=== PATIENT | female | born 1970 | race American Indian/Alaskan Native ===

== ENCOUNTER 2016-08-21 08:21 | Emergency (ER) | payer OTHER, MEDICAID ==
[2016-08-21 08:32] VITALS: BP 130/82
[2016-08-21] MEDS ORDERED: TORADOL IM ONE (09:36)
[2016-08-21] MEDS ORDERED: NORCO 5/325 PO ONE (09:36)
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
== END 2016-08-21 11:30 | disposition home or self-care (01) ==
LOC: ED 08:21
DX: S29.012A Strain of muscle and tendon of back wall of thorax, initial encounter (principal); F17.200 Nicotine dependence, unspecified, uncomplicated; Z88.0 Allergy status to penicillin; V89.2XXS Person injured in unspecified motor-vehicle accident, traffic, sequela
CPT/HCPCS: 96372; 99282; J1885

== ENCOUNTER 2016-09-20 09:19 | Outpatient (CLI) | payer OTHER ==
--- NOTE | 2016-09-20 10:39 | XRay Report ---
AP AND LATERAL CERVICAL SPINE: History: Neck pain. The vertebral bodies are well mineralized and normal in alignment and vertebral height with well preserved interspace distances. The visualized portions of the posterior elements are normal. IMPRESSION: Normal study.
--- NOTE | 2016-09-20 10:40 | XRay Report ---
RIGHT HIP, 2 views: History: Right hip pain. The bony architecture is intact without evidence of fracture or dislocation. No significant soft tissue abnormality is seen. IMPRESSION: Normal right hip.
== END 2016-09-20 09:20 | disposition home or self-care (01) ==
LOC: XRAY 09:19
PROVIDERS: ATTEND Internal Medicine
DX: S39.92XA Unspecified injury of lower back, initial encounter (principal); M25.551 Pain in right hip; M54.2 Cervicalgia; X58.XXXA Exposure to other specified factors, initial encounter; Y93.89 Activity, other specified; Y92.89 Other specified places as the place of occurrence of the external cause; Y99.8 Other external cause status; F41.9 Anxiety disorder, unspecified; F31.9 Bipolar disorder, unspecified; H53.8 Other visual disturbances
CPT/HCPCS: 72040

== ENCOUNTER 2016-11-07 07:49 | Emergency (ER) | payer MEDICAID, OTHER ==
[2016-11-07 08:03] VITALS: BP 123/85
--- NOTE | 2016-11-07 09:07 | Emergency Department Report ---
ED General Adult HPI - General Chief complaint: Pain General Stated complaint: BODY HURTS/DIZZINESS Time Seen by Provider: 11/07/16 08:54 Source: patient Mode of arrival: Ambulatory Limitations: No Limitations - History of Present Illness Initial comments: This is a 46-year-old female well-nourished with nontoxic or ill in appearance but presents with body aches, dizziness, sore throat and neck pain for the past week. Patient denies any sick contacts. Describes body ache as aching and intermittent dizziness. Patient denies head trauma or loss of consciousness. Patient stated she do not side on the sun for the past week with limited fluid intake. Patient describes sore throat as swallowing razor blades. Patient denies any stiff neck. Denies fever, chills, headache, blurry vision, numbness , tingling, bowel pain, nausea or vomiting, chest pain, shortness of breath. Allergies to penicillin. Denies significant past medical history. MD Complaint: bodyaches, sore throat, neck pain -: Gradual, week(s) (1) Radiation: non-radiation Severity scale (0 -10): 9 Quality: aching Consistency: constant (sore throat), intermittent (dizziness) Improves with: none Worsens with: none Associated Symptoms: denies other symptoms. denies: confusion, chest pain, cough, diaphoresis, fever/chills, headaches, loss of appetite, malaise, nausea/ vomiting, rash, seizure, shortness of breath, syncope, weakness Treatments Prior to Arrival: none - Related Data Home Medications Medication Instructions Recorded Confirmed Last Taken Acetaminophen [Acetaminophen TAB] 650 mg PO Q6HR PRN 12/16/14 12/25/14 12/18/14 09:00 Citalopram Hydrobromide [celeXA] 40 mg PO DAILY 12/16/14 12/25/14 12/18/14 09:00 Indomethacin 50 mg PO Q8H 12/16/14 12/25/14 12/18/14 09:00 Previous Rx's Medication Instructions Recorded Last Taken Type Cyclobenzaprine [Flexeril] 10 mg PO TID PRN #15 tablet 08/21/16 Unknown Rx Naproxen [Naprosyn TAB] 500 mg PO BID PRN #25 tablet 08/21/16 Unknown Rx Azithromycin [Zithromax TAB] 500 mg PO DAILY #5 tablet 11/07/16 Unknown Rx Allergies Allergy/AdvReac Type Severity Reaction Status Date / Time Penicillins AdvReac Hives Verified 08/21/16 08:26 ED Review of Systems ROS: Stated complaint: BODY HURTS/DIZZINESS Other details as noted in HPI Constitutional: denies: chills, fever Eyes: denies: eye pain, eye discharge, vision change ENT: throat pain. denies: ear pain Respiratory: denies: cough, shortness of breath, wheezing Cardiovascular: denies: chest pain, palpitations Endocrine: no symptoms reported Gastrointestinal: denies: abdominal pain, nausea, diarrhea Genitourinary: denies: urgency, dysuria, discharge Musculoskeletal: denies: back pain, joint swelling, arthralgia Skin: denies: rash, lesions Neurological: denies: headache, weakness, paresthesias Psychiatric: denies: anxiety, depression Hematological/Lymphatic: denies: easy bleeding, easy bruising ED Past Medical Hx - Past Medical History Previous Medical History?: No Hx Hypertension: No Hx Renal Disease: No Hx Asthma: No Hx COPD: No - Surgical History Past Surgical History?: Yes Additional Surgical History: tubal ligation - Social History Smoking Status: Current Every Day Smoker Substance Use Type: Non Opiate Pain, Prescribed, Other - Medications Home Medications: Home Medications Medication Instructions Recorded Confirmed Last Taken Type Acetaminophen [Acetaminophen TAB] 650 mg PO Q6HR PRN 12/16/14 12/25/14 12/18/14 09:00 History Citalopram Hydrobromide [celeXA] 40 mg PO DAILY 12/16/14 12/25/14 12/18/14 09: 00 History Indomethacin 50 mg PO Q8H 12/16/14 12/25/14 12/18/14 09:00 History Cyclobenzaprine [Flexeril] 10 mg PO TID PRN #15 tablet 08/21/16 Unknown Rx Naproxen [Naprosyn TAB] 500 mg PO BID PRN #25 tablet 08/21/16 Unknown Rx Azithromycin [Zithromax TAB] 500 mg PO DAILY #5 tablet 11/07/16 Unknown Rx ED Physical Exam - General Limitations: No Limitations General appearance: alert, in no apparent distress - Head Head exam: Present: atraumatic, normocephalic, normal inspection - Eye Eye exam: Present: normal appearance, PERRL, EOMI. Absent: scleral icterus, conjunctival injection, nystagmus, periorbital swelling, periorbital tenderness Pupils: Present: normal accommodation - ENT ENT exam: Present: mucous membranes moist, TM's normal bilaterally, normal external ear exam - Expanded ENT Exam Expanded Ear exam: Present: normal external inspection Mouth exam: Present: normal external inspection, tongue normal. Absent: drooling, trismus, muffled voice, tongue elevation, laceration Teeth exam: Present: normal inspection Throat exam: Positive: tonsillar erythema, tonsillomegaly (2+), tonsillar exudate. Negative: R peritonsillar mass, L peritonsillar mass - Neck Neck exam: Present: normal inspection, full ROM. Absent: tenderness, meningismus, lymphadenopathy, thyromegaly - Respiratory Respiratory exam: Present: normal lung sounds bilaterally. Absent: respiratory distress, wheezes, rales, rhonchi, stridor, chest wall tenderness, accessory muscle use, decreased breath sounds, prolonged expiratory - Cardiovascular Cardiovascular Exam: Present: regular rate, normal rhythm, normal heart sounds. Absent: bradycardia, tachycardia, irregular rhythm, systolic murmur, diastolic murmur, rubs, gallop - GI/Abdominal GI/Abdominal exam: Present: soft, normal bowel sounds. Absent: distended, tenderness, guarding, rebound, rigid, diminished bowel sounds - Rectal Rectal exam: Present: deferred, normal rectal tone (as per pt) - Extremities Exam Extremities exam: Present: normal inspection, full ROM, normal capillary refill. Absent: tenderness, pedal edema, joint swelling, calf tenderness - Back Exam Back exam: Present: normal inspection, full ROM. Absent: tenderness, CVA tenderness (R), CVA tenderness (L), muscle spasm, paraspinal tenderness, vertebral tenderness, rash noted - Neurological Exam Neurological exam: Present: alert, oriented X3, CN II-XII intact, normal gait, reflexes normal - Psychiatric Psychiatric exam: Present: normal affect, normal mood - Skin Skin exam: Present: warm, dry, intact, normal color. Absent: rash - Other Other exam information: Negative Brudzinski sign. Negative Kernig sign. ED Course Vital Signs 11/07/16 07:59 Temperature 98.3 F Pulse Rate 80 Respiratory 16 Rate Blood Pressure 123/85 O2 Sat by Pulse 100 Oximetry ED Medical Decision Making - Medical Decision Making Ed course: This is a 46-year-old female that presents with body aches, dizziness , exudative tonsillitis, and neck pain 1- patient received an EKG prior to my interview. Normal sinus rhythm. Normal EKG. 2 after my physical exam, patient received CBC, BMP, CK, UA, serum test. 3- patient received azithromycin 500 mg 5 days due to PCN allergies 4- patient was instructed to follow up with her primary care doctor in 24 hours or if symptoms worsen return back to emergency room as soon as possible. 5 patient was also instructed to finish full course of antibiotics as prescribed. 6- at time time of discharge, the patient does not seem toxic or ill in appearance. No acute signs of distress noted. Patient agrees to discharge treatment plan of care. No further questions noted by the patient. Critical care attestation.: If time is entered above; I have spent that time in minutes in the direct care of this critically ill patient, excluding procedure time. ED Disposition Clinical Impression: Exudative tonsillitis, Dizziness, Body aches Disposition: DC-01 TO HOME OR SELFCARE Is pt being admited?: No Does the pt Need Aspirin: No Condition: Stable Instructions: Tonsillitis (ED), Clindamycin (By mouth), Dizziness (ED) Additional Instructions: Follow-up with her primary care doctor in 24 hours or if symptoms worsen return back to emergency room as soon as possible. Finish course of antibiotics as prescribed. Prescriptions: Azithromycin [Zithromax TAB] 500 mg PO DAILY #5 tablet Referrals: [facility] [Outside] - 3-5 Days [facility] [Outside] - 3-5 Days PRIMARY CAREMD [Primary Care Provider] - 24 Hours THEE GRACIA JR, MD [Staff Physician] - 24 Hours Forms: Work/School Release Form(ED)
[2016-11-07 09:30] LABS: Basophils % (Auto) 0.4 % (0.0-1.8); Eosinophils % (Auto) 2.5 % (0.0-4.3); Hematocrit 34.3 % (30.3-42.9); Hemoglobin 11.3 gm/dl (10.1-14.3); Mean Corpuscular HGB Conc 33 % (30-34); Mean Corpuscular Hemoglobin 30 pg (28-32); Mean Corpuscular Volume 90 fl (79-97); Platelet Count 282 K/mm3 (140-440); Red Cell Distribution Width 13.3 % (13.2-15.2); White Blood Count 7.2 K/mm3 (4.5-11.0)
[2016-11-07 09:40] LABS: Anion Gap 18 mmol/L; BUN/Creatinine Ratio 13.33; Blood Urea Nitrogen 8 mg/dL (7-17); Calcium 9.1 mg/dL (8.4-10.2); Carbon Dioxide 27 mmol/L (22-30); Chloride 99.6 mmol/L (98-107); Creatine Kinase 132 units/L (30-135); Glucose 94 mg/dL (65-100); Potassium 4.1 mmol/L (3.6-5.0); Sodium 140 mmol/L (137-145)
[2016-11-07 10:53] LABS: Bilirubin,Urine NEG (Negative); Blood,Urine MOD (Negative); Ketones,Urine NEG (Negative); Leukocyte Esterase,Urine NEG (Negative); Nitrite,Urine NEG (Negative); Urobilinogen,Urine < 2.0 mg/dL (<2.0)
== END 2016-11-07 11:35 | disposition home or self-care (01) ==
LOC: ED 07:49
DX: J03.90 Acute tonsillitis, unspecified (principal); R42 Dizziness and giddiness; F17.210 Nicotine dependence, cigarettes, uncomplicated; Z88.0 Allergy status to penicillin; Z98.51 Tubal ligation status
CPT/HCPCS: 36415; 80048; 81001; 82550; 84703; 85025; 93005; 93010; 99283

== ENCOUNTER 2016-11-11 18:17 | Emergency (ER) | payer MEDICAID, OTHER ==
[2016-11-11 19:04] LABS: Basophils % (Auto) 0.6 % (0.0-1.8); Eosinophils % (Auto) 1.5 % (0.0-4.3); Hematocrit 32.1 % (30.3-42.9); Hemoglobin 10.6 gm/dl (10.1-14.3); Mean Corpuscular HGB Conc 33 % (30-34); Mean Corpuscular Hemoglobin 30 pg (28-32); Mean Corpuscular Volume 90 fl (79-97); Red Blood Count 3.56 M/mm3 (3.65-5.03); Red Cell Distribution Width 13.5 % (13.2-15.2); White Blood Count 11.9 K/mm3 (4.5-11.0)
[2016-11-11 19:08] LABS: Platelet Count 365 K/mm3 (140-440)
[2016-11-11 19:27] LABS: Anion Gap 19 mmol/L; BUN/Creatinine Ratio 13.33; Blood Urea Nitrogen 8 mg/dL (7-17); Calcium 9.2 mg/dL (8.4-10.2); Carbon Dioxide 24 mmol/L (22-30); Chloride 98.5 mmol/L (98-107); Glucose 107 mg/dL (65-100); Potassium 3.2 mmol/L (3.6-5.0); Sodium 138 mmol/L (137-145)
[2016-11-11] MEDS ORDERED: BABY ASPIRIN PO ONE (22:07)
[2016-11-11] MEDS ORDERED: PEPCID IV ONE (22:13)
[2016-11-11] MEDS ORDERED: MORPHINE IV ONE (22:13)
--- NOTE | 2016-11-11 22:13 | Emergency Department Report ---
ED Chest Pain HPI - General Chief Complaint: Chest Pain Stated Complaint: CHEST PAIN Time Seen by Provider: 11/11/16 22:07 Source: patient Mode of arrival: Ambulatory Limitations: No Limitations - History of Present Illness Initial Comments: Pt is a 46 yr old F with a h/o HTN and depression who presents to the ED with chest pain. Pt reports she had tonsillitis and was given azithromycin 3 days ago and ever since she started the medication she has been experiencing chest pain. She describes the chest pain as sharp constant sharp pain in the middle of her chest with no associated complaints. Otherwise no fevers, chills, WAER dizziness, NVD, SOB, abd pain, travel, or sick contacts. No h/o CAD or stents, patient is a non smoker - Related Data Home Medications Medication Instructions Recorded Confirmed Last Taken Acetaminophen [Acetaminophen TAB] 650 mg PO Q6HR PRN 12/16/14 12/25/14 12/18/14 09:00 Citalopram Hydrobromide [celeXA] 40 mg PO DAILY 12/16/14 12/25/14 12/18/14 09:00 Indomethacin 50 mg PO Q8H 12/16/14 12/25/14 12/18/14 09:00 Previous Rx's Medication Instructions Recorded Last Taken Type Cyclobenzaprine [Flexeril 10 MG 10 mg PO TID PRN #15 tablet 08/21/16 Unknown Rx TAB] Naproxen [Naprosyn TAB] 500 mg PO BID PRN #25 tablet 08/21/16 Unknown Rx Allergies Allergy/AdvReac Type Severity Reaction Status Date / Time Penicillins AdvReac Hives Verified 08/21/16 08:26 Heart Score - HEART Score History: Slightly suspicious EKG: Normal Age: 45-65 Risk factors: No known risk factors Troponin: < normal limit HEART Score: 1 ED Review of Systems ROS: Stated complaint: CHEST PAIN Other details as noted in HPI Comment: All other systems reviewed and negative ED Past Medical Hx - Past Medical History Previous Medical History?: Yes Hx Hypertension: No Hx Renal Disease: No Hx Asthma: No Hx COPD: No - Surgical History Additional Surgical History: tubal ligation - Social History Smoking Status: Current Every Day Smoker Substance Use Type: Alcohol - Medications Home Medications: Home Medications Medication Instructions Recorded Confirmed Last Taken Type Acetaminophen [Acetaminophen TAB] 650 mg PO Q6HR PRN 08/07/2812/25/14 12/18/14 09:00 History Citalopram Hydrobromide [celeXA] 40 mg PO DAILY 12/16/14 12/25/14 12/18/14 09: 00 History Indomethacin 50 mg PO Q8H 12/16/14 12/25/14 12/18/14 09:00 History Cyclobenzaprine [Flexeril 10 MG 10 mg PO TID PRN #15 tablet 08/21/16 Unknown Rx TAB] Naproxen [Naprosyn TAB] 500 mg PO BID PRN #25 tablet 08/21/16 Unknown Rx ED Physical Exam - General Limitations: No Limitations General appearance: alert, in distress (Patient in emotional distress, crying on stretcher) - Head Head exam: Present: atraumatic, normocephalic - Eye Eye exam: Present: normal appearance, PERRL, EOMI Pupils: Present: normal accommodation - ENT ENT exam: Present: mucous membranes moist - Neck Neck exam: Present: normal inspection - Respiratory Respiratory exam: Present: normal lung sounds bilaterally. Absent: respiratory distress - Cardiovascular Cardiovascular Exam: Present: regular rate, normal rhythm, normal heart sounds. Absent: tachycardia, irregular rhythm, systolic murmur, diastolic murmur, rubs , gallop - GI/Abdominal GI/Abdominal exam: Present: soft, normal bowel sounds. Absent: distended, tenderness, guarding, rebound, rigid - Rectal Rectal exam: Present: deferred - Extremities Exam Extremities exam: Present: normal inspection - Back Exam Back exam: Present: normal inspection - Neurological Exam Neurological exam: Present: alert, oriented X3 - Psychiatric Psychiatric exam: Present: normal affect, other (emotionally upset, crying) - Skin Skin exam: Present: warm, dry, intact, normal color. Absent: rash ED Course Vital Signs 11/11/16 18:32 Temperature 98.4 F Pulse Rate 92 H Respiratory 18 Rate Blood Pressure 121/86 O2 Sat by Pulse 100 Oximetry ELLIOT score - Elliot Score Age > 65: (0) No Aspirin use within the Past 7 Days: (0) No 3 or more CAD Risk Factors: (0) No 2 or more Angina events in past 24 hrs: (1) Yes Known CAD with more than 50% Stenosis: (0) No Elevated Cardiac Markers: (0) No ST Deviation Greater than 0.5mm: (0) No ELLIOT Score: 1 ED Medical Decision Making - Lab Data Result diagrams: 11/11/16 18:36 11/11/16 18:36 - EKG Data -: EKG Interpreted by Me - EKG Data 11/11/16 22:08 EKG 1820, normal sinus rhythm at 80 bpm, QTC 428 ms, normal axis, no LVH, no ST changes, no STEMI - Radiology Data Radiology results: report reviewed CXR: no acute cardiopulmonary disease as visualized by me - Medical Decision Making Patient given morphine 4mg IVP and toradol 30mg IVP, pepcid 20mg IVP Cardiac enzymes are negative x 2 after 3+ days of chest pain CXR WNL Likely not cardiac in nature, patient to follow up with PMD, advised patient to stop azithromycin Critical care attestation.: If time is entered above; I have spent that time in minutes in the direct care of this critically ill patient, excluding procedure time. ED Disposition Clinical Impression: Chest wall pain Disposition: DC-01 TO HOME OR SELFCARE Is pt being admited?: No Condition: Stable Instructions: Chest Pain (ED) Additional Instructions: STOP TAKING THE AZITHROMYCIN Referrals: PRIMARY CARE, [Primary Care Provider] - 3-5 Days
[2016-11-11] MEDS ORDERED: K-DUR PO ONE (23:37)
[2016-11-12] MEDS ORDERED: TORADOL IV ONE (00:31)
[2016-11-12 00:49] VITALS: BP 115/73
--- NOTE | 2016-11-12 09:14 | XRay Report ---
Chest 2 views: History: Chest pain. Findings: Normal cardiomediastinal silhouette. Trachea is midline. No consolidation, pneumothorax or pleural effusion. Impression: No acute cardiopulmonary findings.
== END 2016-11-12 00:50 | disposition home or self-care (01) ==
LOC: ED 18:17
DX: R07.89 Other chest pain (principal); F17.200 Nicotine dependence, unspecified, uncomplicated
CPT/HCPCS: 36415; 71020; 80048; 84484; 84703; 85025; 85379; 93005; 93010; 96374; 96375; 99285; J1885; J2270

== ENCOUNTER 2017-02-28 11:57 | Emergency (ER) | payer MEDICAID ==
[2017-02-28 12:14] VITALS: BP 123/70
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
[2017-02-28 13:51] LABS: Basophils % (Auto) 0.8 % (0.0-1.8); Eosinophils % (Auto) 1.3 % (0.0-4.3); Hematocrit 36.5 % (30.3-42.9); Hemoglobin 12.3 gm/dl (10.1-14.3); Mean Corpuscular HGB Conc 34 % (30-34); Mean Corpuscular Hemoglobin 30 pg (28-32); Mean Corpuscular Volume 90 fl (79-97); Platelet Count 237 K/mm3 (140-440); Red Blood Count 4.08 M/mm3 (3.65-5.03); Red Cell Distribution Width 13.6 % (13.2-15.2); White Blood Count 5.4 K/mm3 (4.5-11.0)
[2017-02-28 14:02] LABS: INR 0.86 (0.87-1.13); Partial Thromboplastin Time 31.4 Sec. (24.2-36.6)
[2017-02-28 14:05] LABS: Creatine Kinase MB 1.8 ng/mL (0.0-4.0)
[2017-02-28 14:06] LABS: Alanine Aminotransferase 13 units/L (7-56); Albumin 4.1 g/dL (3.9-5); Albumin/Globulin Ratio 1.6 %; Alkaline Phosphatase 51 units/L (35-129); Anion Gap 16 mmol/L; BUN/Creatinine Ratio 20; Blood Urea Nitrogen 10 mg/dL (7-17); Carbon Dioxide 27 mmol/L (22-30); Chloride 102.2 mmol/L (98-107); Creatine Kinase 227 units/L (30-135); Glucose 110 mg/dL (65-100); Sodium 141 mmol/L (137-145); Total Protein 6.7 g/dL (6.3-8.2)
--- NOTE | 2017-02-28 14:50 | Cat Scan Report ---
CT HEAD WITHOUT CONTRAST: HISTORY: CVA. Serial contiguous axial images were obtained through the cranium. Intravenous contrast material was not administered. The ventricles are normal in size and appearance. There is no mass effect or midline shift. No areas of abnormally increased or decreased attenuation are seen. No mass lesion is seen. The mastoid air cells and visualized portions of the sinuses are normal. IMPRESSION: Cranial CT scan within normal limits.
== END 2017-03-01 05:00 | disposition left against medical advice (07) ==
LOC: ED 11:57
DX: M79.1 Myalgia (principal); Z53.21 Procedure and treatment not carried out due to patient leaving prior to being seen by health care provider
CPT/HCPCS: 36415; 70450; 80053; 82550; 82553; 84484; 84703; 85025; 85610; 85670; 85730; 86850; 86900; 86901

== ENCOUNTER 2017-09-22 05:33 | Emergency (ER) | payer MEDICAID ==
[2017-09-22] MEDS ORDERED: TYLENOL ONE (05:59)
[2017-09-22 06:02] VITALS: BP 146/89
--- NOTE | 2017-09-22 09:35 | Emergency Department Report ---
ED Back Pain/Injury HPI - General Chief Complaint: Back Pain/Injury Stated Complaint: CP/BACK PAIN Time Seen by Provider: 09/22/17 09:21 Source: patient Limitations: No Limitations - History of Present Illness Initial Comments: Patient is a 47-year-old black female who is complaining of pain between her shoulder blades radiating to the mid back. Patient states this a sharp labor like pain. Patient states she reached down to grab her grandchild 2 days ago started having pain after that. Patient states is worse after awakening the next morning. Patient is denying any shortness of breath cough congestion and fevers chills nausea vomiting at this time. Patient has no radiation of this pain into the arms or any weakness bilaterally. States pain is 10 out of 10 in her sports with movement. - Related Data Home Medications Medication Instructions Recorded Confirmed Last Taken Acetaminophen [Acetaminophen TAB] 650 mg PO Q6HR PRN 12/16/14 12/25/14 12/18/14 09:00 Citalopram Hydrobromide [celeXA] 40 mg PO DAILY 12/16/14 12/25/14 12/18/14 09:00 Indomethacin 50 mg PO Q8H 12/16/14 12/25/14 12/18/14 09:00 Previous Rx's Medication Instructions Recorded Last Taken Type Cyclobenzaprine [Flexeril 10 MG 10 mg PO TID PRN #15 tablet 08/21/16 Unknown Rx TAB] Naproxen [Naprosyn TAB] 500 mg PO BID PRN #25 tablet 08/21/16 Unknown Rx HYDROcodone/APAP 5-325 [[place] 1 each PO Q6HR PRN #15 tablet 09/22/17 Unknown Rx 5/325] Ibuprofen [Motrin] 800 mg PO Q8HR PRN #20 tablet 09/22/17 Unknown Rx methOCARBAMOL [Robaxin TAB] 500 mg PO Q6H PRN #15 tablet 09/22/17 Unknown Rx Allergies Allergy/AdvReac Type Severity Reaction Status Date / Time Penicillins AdvReac Hives Verified 08/21/16 08:26 ED Review of Systems ROS: Stated complaint: CP/BACK PAIN Other details as noted in HPI Comment: All other systems reviewed and negative ED Past Medical Hx Family history: no significant family history ED Back Pain Physical Exam - Exam General: Vital signs noted. No distress. Alert and acting appropriately. Back/Abdomen: Yes Perithoracic Tenderness (right greater than left), No Abdominal Tenderness, No Perilumbar Tenderness, No Sacroiliac Tenderness, No Flank Tenderness, No Straight Leg Raise Pain Neuro: Yes Normal Sensation, Yes Normal DTR's, Yes Normal Gait, No Motor Weakness ED Course Vital Signs 09/22/17 05:49 Temperature 98.3 F Pulse Rate 97 H Respiratory 18 Rate Blood Pressure 146/89 O2 Sat by Pulse 100 Oximetry ED Medical Decision Making - EKG Data -: EKG Interpreted by Me - EKG Data Interpretation: other (EKG shows normal sinus rhythm with a rate of 84 normal axis normal intervals no ST segment elevation or depression as interpreted 40 is a normal EKG) - Medical Decision Making Patient is exhibiting muscle skeletal pain with muscle spasm. Patient will be discharged home with appropriate pain management. Critical care attestation.: If time is entered above; I have spent that time in minutes in the direct care of this critically ill patient, excluding procedure time. ED Disposition Clinical Impression: Back strain Qualifiers: Encounter type: initial encounter Qualified Code(s): S39.012A - Strain of muscle, fascia and tendon of lower back, initial encounter Disposition: - TO HOME OR SELFCARE Is pt being admited?: No Does the pt Need Aspirin: No Condition: Stable Instructions: Muscle Strain (ED) Referrals: GEO HICKS MD [Primary Care Provider] - 3-5 Days
[2017-09-22] MEDS ORDERED: TORADOL IM ONE (09:36)
== END 2017-09-22 09:55 | disposition home or self-care (01) ==
LOC: ED 05:33
DX: S39.012A Strain of muscle, fascia and tendon of lower back, initial encounter (principal); Z88.0 Allergy status to penicillin; X58.XXXA Exposure to other specified factors, initial encounter; Y93.89 Activity, other specified; Y92.89 Other specified places as the place of occurrence of the external cause; Y99.8 Other external cause status
CPT/HCPCS: 93005; 93010; 96372; 99282; J1885

== ENCOUNTER 2019-01-10 14:49 | Emergency (ER) | payer MEDICAID ==
[2019-01-10] MEDS ORDERED: IBUPROFEN PO ONE (17:31)
[2019-01-10 17:52] LABS: Basophils # (Auto) 0.1 K/mm3 (0.0-0.1); Basophils % (Auto) 0.9 % (0.0-1.8); Eosinophils # (Auto) 0.1 K/mm3 (0.0-0.4); Eosinophils % (Auto) 1.8 % (0.0-4.3); Hematocrit 39.4 % (30.3-42.9); Hemoglobin 13.4 gm/dl (10.1-14.3); Lymphocytes # (Auto) 2.5 K/mm3 (1.2-5.4); Lymphocytes % (Auto) 34.9 % (13.4-35.0); Mean Corpuscular HGB Conc 34 % (30-34); Mean Corpuscular Volume 90 fl (79-97); Monocytes # (Auto) 0.6 K/mm3 (0.0-0.8); Monocytes % (Auto) 8.2 % (0.0-7.3); Platelet Count 274 K/mm3 (140-440); Red Blood Count 4.38 M/mm3 (3.65-5.03); Red Cell Distribution Width 13.4 % (13.2-15.2)
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
[2019-01-10 18:25] LABS: BUN/Creatinine Ratio 24; Blood Urea Nitrogen 17 mg/dL (7-17); Calcium 9.3 mg/dL (8.4-10.2); Hemolysis Index 8
[2019-01-10 20:56] VITALS: BP 139/85
== END 2019-01-10 20:56 | disposition home or self-care (01) ==
LOC: ED 14:49
DX: S86.911A Strain of unspecified muscle(s) and tendon(s) at lower leg level, right leg, initial encounter (principal); S86.912A Strain of unspecified muscle(s) and tendon(s) at lower leg level, left leg, initial encounter; M54.9 Dorsalgia, unspecified; G89.29 Other chronic pain; F17.200 Nicotine dependence, unspecified, uncomplicated; Z98.51 Tubal ligation status; Z79.899 Other long term (current) drug therapy; Z79.1 Long term (current) use of non-steroidal anti-inflammatories (NSAID); Z88.0 Allergy status to penicillin; W18.09XA Striking against other object with subsequent fall, initial encounter; Y93.01 Activity, walking, marching and hiking; Y92.89 Other specified places as the place of occurrence of the external cause; Y99.8 Other external cause status
CPT/HCPCS: 36415; 80048; 82550; 85025; 99283

== ENCOUNTER 2019-12-01 00:36 | Emergency (ER) | payer MEDICAID ==
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
== END 2019-12-01 01:00 | disposition left against medical advice (07) ==
LOC: ED 00:36
DX: F44.5 Conversion disorder with seizures or convulsions (principal); F17.200 Nicotine dependence, unspecified, uncomplicated; Z98.51 Tubal ligation status; Z79.899 Other long term (current) drug therapy; Z88.0 Allergy status to penicillin; Z53.21 Procedure and treatment not carried out due to patient leaving prior to being seen by health care provider
CPT/HCPCS: 99283

== ENCOUNTER 2020-02-12 01:32 | Emergency (ER) | payer MEDICAID ==
[2020-02-12 01:49] VITALS: BP 128/94
== END 2020-02-12 05:12 | disposition left against medical advice (07) ==
LOC: ED 01:32
DX: F43.9 Reaction to severe stress, unspecified (principal); Z53.21 Procedure and treatment not carried out due to patient leaving prior to being seen by health care provider

== ENCOUNTER 2020-03-19 21:28 | Emergency (ER) | payer MEDICAID | END 2020-03-19 21:50 | disposition left against medical advice (07) | LOC: ED 21:28 | DX: R56.9 Unspecified convulsions (principal); Z53.21 Procedure and treatment not carried out due to patient leaving prior to being seen by health care provider ==

== ENCOUNTER 2020-10-01 09:10 | Emergency (ER) | payer MEDICAID ==
[2020-10-01 09:27] VITALS: BP 121/69
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
--- NOTE | 2020-10-01 10:47 | XRay Report ---
CHEST 2 VIEWS INDICATION / CLINICAL INFORMATION: cough. COMPARISON: None available. FINDINGS: SUPPORT DEVICES: None. HEART / MEDIASTINUM: No significant abnormality. LUNGS / PLEURA: No significant pulmonary or pleural abnormality. No pneumothorax. ADDITIONAL FINDINGS: No significant additional findings. IMPRESSION: 1. No acute findings. Signer Name: Fran Turner MD Signed: 10/01/2020 10:42 AM Workstation Name: [id number]
[2020-10-01] MEDS ORDERED: CLINDAMYCIN 150 MG CAP PO SCH (11:00)
== END 2020-10-01 11:04 | disposition home or self-care (01) ==
LOC: ED 09:10
DX: J02.9 Acute pharyngitis, unspecified (principal); F32.9 Major depressive disorder, single episode, unspecified; F17.200 Nicotine dependence, unspecified, uncomplicated; Z98.51 Tubal ligation status; Z79.1 Long term (current) use of non-steroidal anti-inflammatories (NSAID); Z79.2 Long term (current) use of antibiotics; Z79.899 Other long term (current) drug therapy; Z88.0 Allergy status to penicillin
CPT/HCPCS: 71046

== ENCOUNTER 2021-06-16 11:33 | Emergency (ER) | payer MEDICAID ==
[2021-06-16 12:40] VITALS: BP 134/59
== END 2021-06-17 03:31 | disposition home or self-care (01) ==
LOC: ED 11:33
DX: R52 Pain, unspecified (principal); Z53.21 Procedure and treatment not carried out due to patient leaving prior to being seen by health care provider

== ENCOUNTER 2021-12-27 07:18 | Emergency (ER) | payer MEDICAID ==
[2021-12-27] MEDS ORDERED: HYDROcodone/ACETAMINOPHEN 5-325 MG TAB PO ONE (09:00)
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
[2021-12-27 10:10] VITALS: BP 136/88
== END 2021-12-27 10:10 | disposition home or self-care (01) ==
LOC: ED 07:18
DX: S80.02XA Contusion of left knee, initial encounter (principal); F32.A Depression, unspecified; F17.200 Nicotine dependence, unspecified, uncomplicated; Z88.0 Allergy status to penicillin; V89.2XXA Person injured in unspecified motor-vehicle accident, traffic, initial encounter; Y93.89 Activity, other specified; Y92.89 Other specified places as the place of occurrence of the external cause; Y99.8 Other external cause status
CPT/HCPCS: 70486; 99284